=== PATIENT | male | born 1995 | race Caucasian/White ===

== ENCOUNTER 2024-03-04 12:57 | Emergency (ER) | payer BC, OTHER, SELFPAY ==
[2024-03-04 12:59] VITALS: BP 100/58
--- NOTE | 2024-03-04 13:58 | ED.GENMED ---
History of Present Illness
General
Chief Complaint: Musculo-Skeletal Complaint
Source: family (Father)
Exam Limitations: other (Autistic)
Time Seen by Provider: 03/04/24 13:22
Travel History
Have you had any contact with someone who has COVID-19?: No
Do you have any symptoms of coronavirus? Fever > 100 degrees, chills, cough, shortness of breath, sore throat, loss of taste or smell, muscle aches, or headache?: No
History of Present Illness
History of Present Illness:
Patient rolled his ankle last night jumping from a step. No other injury or complaint able to bear weight
Past History
Past History
ED Past Medical History: Other (Autism, seizure disorder, migraine headaches)
Social History
Tobacco: Non-smoker
Alcohol: None
Drug: None
Living: with family
Family History
Family History: Negative Early CAD
Review of Systems
Review of Systems
All Other Systems: Not applicable
Phy Exam
Physical Exam
Physical Exam:
General: Nontoxic appearing in no distress
Skin: Warm and dry, no rash
Neuro: Alert, nontoxic, grossly nonfocal
Psychiatric: Good eye contact and appropriate
Musculoskeletal: Mild swelling and tenderness over the lateral malleolus. No medial swelling or tenderness. Achilles intact. Foot nontender. Negative fifth metatarsal. Proximal tibia and knee within normal limits.
Course
Orders/Labs/Results
Orders:
Orders
03/04/24 12:59
Ankle, Right 3 view CR [CR Ankle - Right Min 3 Views *] Urgent
Comment:
Reason For Exam: injury last night
Vital Signs
Initial and Last Documented VS:
Initial Vital Signs
Pulse Resp BP Pulse Ox
91 17 100/58 99
03/04/24 12:59 03/04/24 12:59 03/04/24 12:59 03/04/24 12:59
Last Documented Vital Signs
Pulse Resp BP Pulse Ox
91 17 100/58 99
03/04/24 12:59 03/04/24 12:59 03/04/24 12:59 03/04/24 12:59
*Radiology
Radiology exam reviewed: preliminary read by ED provider (Negative) and radiology read reviewed
*Critical Care Note
Total Time (30-74mins, 75-104mins- exclusive of procedures): Not Applicable
Update Note
Update Note:
Ankle sprain. Air splint and follow-up
ED Attending Note
-
Portions of this chart may have been created with voice recognition software.� Occasional wrong word or��sound alike� substitutions may have occurred due to the inherent limitations of voice recognition software.
Discharge Plan
Departure
Patient Disposition: Home (Routine Discharge)
Date of Disposition: 03/04/24
Time of Disposition: 13:59
Patient with high blood pressure during this ER visit?: No
Discharge Problem:
Right ankle sprain
Instructions: Ankle Sprain (DC)
Prescriptions:
No Action
famotidine [Pepcid] 40 MG tablet
40 mg PO DAILY Qty: 14 0RF
Activity Restrictions/Additional Instructions:
Follow-up with orthopedics if not significantly improved in 3 to 5 days
Interventions
Interventions:
*Risk Screen - Suicide Last Done: 03/04/24 13:51
*General Assessment Last Done: 03/04/24 13:51
*Neglect/Abuse Screening Last Done: 03/04/24 13:51
*ED COVID-19 Vaccine History Last Done: 03/04/24 13:51
ED-Musculoskeletal Assessment Last Done: 03/04/24 13:51
Discharge Date and Time
Print Language: ARABIC
== END 2024-03-04 14:07 | disposition home or self-care (01) ==
LOC: EMR 12:57
PROVIDERS: EMERGENCY PHYSICIAN Emergency Medicine; FAMILY PHYSICIAN Physician Assistant Medical
DX: S93.401A Sprain of unspecified ligament of right ankle, initial encounter (principal); X50.1XXA Overexertion from prolonged static or awkward postures, initial encounter; F84.0 Autistic disorder; G40.909 Epilepsy, unspecified, not intractable, without status epilepticus; G43.909 Migraine, unspecified, not intractable, without status migrainosus; Z88.1 Allergy status to other antibiotic agents; Z91.010 Allergy to peanuts; Z91.018 Allergy to other foods
CPT/HCPCS: 99283; 73610

== ENCOUNTER 2025-06-23 19:59 | Emergency (ER) | payer OTHER, BC, SELFPAY ==
[2025-06-23 20:11] VITALS: BP 120/74
--- NOTE | 2025-06-23 23:13 | ED.MUSCINJ ---
HPI-Injury
General
Chief Complaint: Musculo-Skeletal Complaint
Source: family (father)
Exam Limitations: non verbal-adult
Time Seen by Provider: 06/23/25 21:03
Nursing documentation reviewed up to this point in time: agreed with
History of Present Illness-Injury
Is this injury a work related problem?: No
Is pt an associate of [facility]/[place]?: No
Initial Injury comments:
Patient to ED with complaint of pain and bruisin gto left 2nd toe after falling in shower. Incident occurred tonight,
Past History
Past History
ED Past Medical History: Other (Autism, seizure disorder, migraine headaches)
Social History
Tobacco: Non-smoker
Alcohol: None
Drug: None
Living: with family
Family History
Family History: Negative Early CAD
Review of Systems
Review of Systems
Allergies reviewed?: Yes
All Other Systems: ROS reviewed and negative except as documented in HPI and ROS
Constitutional: Reports no symptoms
Musculoskeletal: Reports joint pain (pain and bruising to left 2nd toe)
Skin: Reports no symptoms
Neurological: Reports no symptoms
Psychiatric: Reports no symptoms
Musculoskeletal Injury Exam
Musculoskeletal Injury Exam
Left Second Toe:
Pain with Movement?: Moderate
Tender to palpation?: Moderate
Soft tissue swelling?: Moderate
External deformity and angulation?: None
Joint effusion?: None
Contusion?: Moderate
Hematoma-local bleeding into tissue?: Moderate
Strain- Sprain- Tear (Connective tissue injury)?: Moderate
Crepitus with movement?: No
Joint instability?: No
Malalignment/deformity?: No
Range of motion: Full
Distal skin color and temperature: normal-warm & good color
Capillary Refill: normal
Normal distal neurovascular exam?: Yes
Peripheral Pulses: posterior tibial (left): 3+ and dorsalis pedis (left): 3+
Phy Exam
General Physical Exam
General Presentation: well appearing and no apparent distress
General age: appears stated age
General Skin: warm and dry
General Habitus: normal
Musculoskeletal Exam
Musculoskeletal Exam: full ROM and neuro vasc intact
Skin Exam
Skin Exam: normal color, warm/dry and no rash
Psychiatric Exam
Psychiatric Exam: normal mood/affect
Injury Course
Orders/Labs/Results
Orders:
Orders
06/23/25 20:15
CR Foot - Left Min 3 Views Urgent
Reason For Exam: injury
*Radiology
Radiology exam reviewed: radiology read reviewed
*Pulse Oximetry
SaO2: 95
Oxygen Mode of Delivery: Room air
Patient hypoxic: no
*Critical Care Note
Total Time (30-74mins, 75-104mins- exclusive of procedures): Not Applicable
ED Attending Note
-
Portions of this chart may have been created with voice recognition software.� Occasional wrong word or��sound alike� substitutions may have occurred due to the inherent limitations of voice recognition software.
Discharge Plan
Departure
Patient Disposition: Home (Routine Discharge)
Date of Disposition: 06/23/25
Time of Disposition: 21:29
Patient with high blood pressure during this ER visit?: No
Condition: Good
Covid-19: Not Applicable
Discharge Problem:
Contusion of foot
Instructions: Contusion (DC), Ibuprofen, Using Cold for Pain
Prescriptions:
No Action
famotidine [Pepcid] 40 MG tablet
40 mg PO DAILY Qty: 14 0RF
Referrals:
Joaquin Quijano MD [Family Provider, Internal Medicine] - Next open appointment
Interventions
Interventions:
*Risk Screen - Suicide Last Done: 06/23/25 20:11
*General Assessment Last Done: 06/23/25 20:11
*Neglect/Abuse Screening Last Done: 06/23/25 20:11
*ED- Fall Risk Assessment Last Done: 06/23/25 20:11
*ED COVID-19 Vaccine History Last Done: 06/23/25 20:11
*Nursing Disposition Last Done: 06/23/25 21:52
ED-Musculoskeletal Assessment Last Done: 06/23/25 21:51
Discharge Date and Time
Discharge Date/Time: 06/23/25 21:52
Print Language: BELARUSIAN
== END 2025-06-23 21:52 | disposition home or self-care (01) ==
LOC: EMR 19:59
PROVIDERS: EMERGENCY PHYSICIAN Emergency Medicine; FAMILY PHYSICIAN Internal Medicine
DX: S90.32XA Contusion of left foot, initial encounter (principal); W18.2XXA Fall in (into) shower or empty bathtub, initial encounter; F84.0 Autistic disorder; G40.909 Epilepsy, unspecified, not intractable, without status epilepticus
CPT/HCPCS: 99283; 73630